=== PATIENT | female | born 1965 | race Caucasian/White ===

== ENCOUNTER 2017-09-08 20:22 | Emergency (ER) | payer SELFPAY, OTHER | END 2017-09-09 00:30 | disposition left against medical advice (07) | LOC: FTE 20:22 | DX: Z53.21 Procedure and treatment not carried out due to patient leaving prior to being seen by health care provider (principal) ==

== ENCOUNTER 2017-09-13 23:51 | Emergency (ER) | payer OTHER ==
[2017-09-14] MEDS: ACETAMINOPHEN 325 MG TAB PO (02:23)
[2017-09-14 03:45] LABS: ADD UMIC NO; UR ASCORBIC ACID 40 mg/dL (NEGATIVE); UR BILIRUBIN (Dip) NEGATIVE (NEGATIVE); UR BLOOD (Dip) NEGATIVE (NEGATIVE); UR CLARITY SLIGHTLY CLOUDY (CLEAR); UR COLOR YELLOW (YELLOW); UR GLUCOSE (Dip) NEGATIVE (NEGATIVE); UR KETONES (Dip) NEGATIVE (NEGATIVE); UR LEUKOCYTE ESTERASE (Dip) NEGATIVE Leu/ul (NEGATIVE); UR MUCUS FEW /HPF (NONE SEEN); UR NITRITE (Dip) NEGATIVE (NEGATIVE); UR RBC 4 /HPF (0-5); UR SPECIFIC GRAVITY (Dip) 1.026 (1.003-1.030); UR SQUAMOUS EPITHELIAL CELL FEW /HPF (FEW); UR TOTAL PROTEIN (Dip) NEGATIVE (NEGATIVE); UR UROBILINOGEN (Dip) NEGATIVE (NEGATIVE); UR WBC 3 /HPF (0-5)
[2017-09-14] MEDS: traMADol 50 MG TAB PO (04:55)
== END 2017-09-14 05:26 | disposition home or self-care (01) ==
LOC: FTE 23:51
DX: M25.512 Pain in left shoulder (principal); I10 Essential (primary) hypertension; M54.2 Cervicalgia; Z87.891 Personal history of nicotine dependence
CPT/HCPCS: 70450; 71045; 72125; 73030; 81001; 81003; 93005; 99285-25